=== PATIENT | female | born 1980 | race Caucasian/White ===

== ENCOUNTER 2018-02-21 09:30 | Emergency (ER) | payer MEDICARE, MEDICAID ==
[2018-02-21 09:41] VITALS: BP 122/78
--- NOTE | 2018-02-21 10:19 | UC ---
Respiratory Complaint HPI - HPI Summary HPI Summary: MD: Patient complains of a cough for the past week it is not improving. Also wheezing. Nurse's note: uri sx x 1 week not improving - History of Current Complaint Chief Complaint: UCRespiratory Stated Complaint: COUGH, SOB Time Seen by Provider: 02/21/18 09:56 Hx Last Menstrual Period: 02/17/18 Pain Intensity: 0 - Allergies/Home Medications Allergies/Adverse Reactions: Allergies Allergy/AdvReac Type Severity Reaction Status Date / Time No Known Allergies Allergy Verified 02/21/18 09:41 PMH/Surg Hx/FS Hx/Imm Hx Previously Healthy: Yes Respiratory History: Other - history of bronchospasm; by hx there are a number of asthma medications although patient denies hx of asthma. Other Respiratory History: history of bronchospasm; by hx there are a number of asthma medications alt - Surgical History Surgical History: Yes Surgery Procedure, Year, and Place: X 1. gall bladder removal. TONSILECTOMY. TUBAL LIGATION - Family History Known Family History: Positive: Diabetes - Social History Occupation: Works From/At Home Alcohol Use: None Substance Use Type: None Smoking Status (MU): Former Smoker Type: Cigarettes Amount Used/How Often: 1/2 ppd Have You Smoked in the Last Year: No - patient denies smoking for 3 years - Immunization History Most Recent Influenza Vaccination: unknown Most Recent Tetanus Shot: unknown Most Recent Pneumonia Vaccination: never and denies Vaccination Up to Date: Yes Review of Systems Constitutional: Negative Skin: Negative Eyes: Negative ENT: Negative Respiratory: Cough, Other - wheezing; cough non productive most of the time. Cardiovascular: Negative Gastrointestinal: Negative Genitourinary: Negative Motor: Negative Neurovascular: Negative Musculoskeletal: Negative Neurological: Negative Psychological: Negative Is Patient Immunocompromised?: No All Other Systems Reviewed And Are Negative: Yes Physical Exam - Summary Physical Exam Summary: Appearance: The patient is well-appearing, is in no pain or distress, and is well-nourished. Eyes: Conjunctiva are clear. Pupils are equal and reactive to light and accommodation. Extra ocular muscle movement is intact. ENT: The hearing is grossly normal, the pharynx is normal, and the TMs are normal. There is no muffled or hoarse voice. No stridor. Neck: The neck is supple and there is no lymphadenopathy. Respiratory: The chest is nontender to palpation and without crepitus. The lungs reveal rhonchi and extended expiration and wheezes on the right mid lung field. Cardiovascular: Heart sounds reveal a regular rate and rhythm. There are no clicks, rubs or murmurs. There are no carotid bruits or thrills. Circulation is grossly intact. Abdomen: The abdomen is soft and nontender. There is no organomegaly. Bowel sounds are present and within normal limits. No point tenderness at McBurneys point. Musculoskeletal: Strength is intact. The patient moves all extremities. x. Neurological: The patient is alert. Motor and sensory are examination grossly intact. Speech is normal. Psychological: The patient displays age appropriate behavior Skin: Negative for rashes. Triage Information Reviewed: Yes Vital Signs: Initial Vital Signs Temp 96.8 F 02/21/18 09:38 Pulse 98 02/21/18 09:38 Resp 17 02/21/18 09:38 BP 122/78 02/21/18 09:38 Pulse Ox 100 02/21/18 09:38 Diagnostic Evaluation - Laboratory O2 Sat by Pulse Oximetry: 100 Respiratory Course/Dx - Course Course Of Treatment: This is a 37-year-old female who presents to the [facility] with a one-week history of cough and wheezing. Her past medical history is unclear but review of her medications suggests that she has had bronchospasm in the past. Denies asthma. She does have a history of smoking but says that she has not smoked for the past 3 years. She denies temperature but does have a nonproductive cough. She has mild shortness of breath and wheezing. Physical examination shows the patient to be afebrile and not in acute distress but there are significant rhonchi and wheezes in the right mid lung field. She has an intermittent cough. Diagnosis is bronchitis with bronchospasm. She will be started on Zithromax and albuterol and a spacer. We did discuss the use of a steroid and if she returns I would add that medication at that time. Pre-Hypertensive BP reading (121-139/81-89); patient referred to PCP for follow-up within 4 weeks. Patient voices understanding. Medications have been included in the original chart and reviewed. - Differential Dx/Diagnosis Differential Diagnosis/HQI/PQRI: Asthma, Bronchitis, Exacerbation Of COPD, Lower Resp Infection Provider Diagnoses: Bronchitis with bronchospasmb Discharge - Sign-Out/Discharge Documenting (check all that apply): Patient Departure All imaging exams completed and their final reports reviewed: Yes - Discharge Plan Condition: Stable Disposition: HOME Prescriptions: Albuterol HFA INHALER* [Ventolin HFA Inhaler*] 1 - 2 puff INH Q4H #1 mdi MDD 8 puffs Azithromycin TAB* [Zithromax TAB*] 250 mg PO DAILY #6 tab Inhaler, Assist Devices [Aerochamber Mv] 1 mis XX Q6HR #1 mis Patient Education Materials: Acute Bronchitis (ED), Bronchospasm (ED) Referrals: Donya Silva MD [Primary Care Provider] - Additional Instructions: WE DISCUSSED: You have bronchitis with bronchospasm. 1. Use inhaler and spacer: 2 puffs, 4 times a day for the next 2-4 days. 2. Take Zithromax antibiotic. 3. Lots of warm fluids like tea and honey. Use steam. 4. Your blood pressure is just slightly elevated. Re check it to make sure it' s less than 122. 5. Recheck with your doctor or call us for any questions or concerns. Go to ED for increasing shortness of breath or temperature. PLEASE SEEK CARE AT THE EMERGENCY DEPARTMENT IF SYMPTOMS WORSEN OR IF NEW SYMPTOMS DEVELOP. FOLLOW UP WITH YOUR PRIMARY CARE PHYSICIAN IF CONDITION CONTINUES BEYOND 3 DAYS WITHOUT IMPROVEMENT. HTN NOTED: Hypertensive BP reading of 122/78; follow up with PCP within 4 weeks to recheck blood pressure has been recommended to patient. Patient voices understanding. - Billing Disposition and Condition Condition: STABLE Disposition: Home
== END 2018-02-21 10:50 | disposition home or self-care (01) ==
LOC: UCEAST 09:30
DX: J20.9 Acute bronchitis, unspecified (principal); I10 Essential (primary) hypertension; R91.8 Other nonspecific abnormal finding of lung field; Z87.891 Personal history of nicotine dependence
CPT/HCPCS: 99212; G0463